=== PATIENT | male | born 1970 | race Caucasian/White ===

== ENCOUNTER 2017-01-28 17:06 | Emergency (ER) | payer BC ==
[~2017-01-28] VITALS: Ht 185.4 cm; Wt 100.3 kg
[2017-01-28 18:06] LABS: HEMATOCRIT 47.1 % (38.0-50.0); MCH 30.3 PG (29.0-34.0); MCHC 34.6 G/DL (30.0-36.0); MCV 87.5 FL (86-99); MEAN PLAT.VOLUME 9.5 uM^3 (9.0-12.4); PLATELET COUNT 268 K/uL (156-360); RBC DIS.WIDTH-SD 38.7 % (39-53); RED BLOOD COUNT 5.38 M/uL (4.00-5.50)
[2017-01-28 18:22] LABS: CHLORIDE 97 mEq/L (99-109); POTASSIUM 3.4 mEq/L (3.7-5.4); SODIUM 134 mEq/L (136-147)
[2017-01-28 18:23] LABS: GLUCOSE 115 mg/dL (70-99)
[2017-01-28 18:25] LABS: ANION GAP 13 MEQ/L (2-14)
[2017-01-28 18:27] LABS: GFR ESTIMATE (CALCULATED) > 59 mL/min/
[2017-01-28 18:28] LABS: UREA NITROGEN (BUN) 15 mg/dL (9-23)
[2017-01-28 19:40] LABS: ADD MIUA? YES; BILIRUBIN NEGATIVE; BLOOD LARGE; COLOR AMBER ((YELLOW)); GLUCOSE (STRIP) NEGATIVE; KETONES 5; LEUKOCYTES NEGATIVE; NITRITE NEGATIVE; PROTEIN (STRIP) 100; SPECIFIC GRAVITY 1.024 (1.000-1.030); UROBILINOGEN 0.2 MG/DL (0.2-1.0)
[2017-01-28 19:53] LABS: BACTERIA RARE /HPF; EPITHELIAL CELLS RARE /HPF; HYALINE CASTS 0-5 /LPF; MUCUS 3+ /LPF; RED BLOOD CELLS 20-30 /HPF (0-5); UCUL ADDED? NO; WHITE BLOOD CELLS 0-5 /HPF (0-5)
[2017-01-28 20:23] LABS: INTERNAL CONTROL VALID? YES; MONOSPOT (MONONUCLEOSIS SEROL) NEGATIVE
[2017-01-28 21:05] LABS: ALKALINE PHOSPHATASE 66 IU/L (3-129)
[2017-01-28 21:08] LABS: DIRECT BILIRUBIN 0.4 mg/dL (0.0-0.3)
[2017-01-28 21:09] LABS: CREATINE KINASE 102 IU/L (1-294); LIPASE 34 U/L (1.0-51.0)
[2017-01-28] MEDS ORDERED: VIBRAMYCIN100 MG PO (22:29)
[2017-01-28] MEDS ORDERED: FLONASE16 G1 BOTH NARES (22:29)
[2017-01-28] MEDS ORDERED: MOTRIN800 MG PO (22:29)
[2017-01-28] MEDS ORDERED: ZOFRAN ODT4 MG PO (22:29)
[2017-01-28 22:42] VITALS: BP 124/84
[2017-01-29 11:55] LABS: LYME DISEASE SEROLOGY SCREEN NEGATIVE (NEGATIVE)
== END 2017-01-28 23:02 | disposition home or self-care (01) ==
LOC: EME 17:06 → RME 17:06
PROVIDERS: Physician Assistant
DX: J01.90 Acute sinusitis, unspecified (principal); M79.1 Myalgia; R53.1 Weakness; R11.2 Nausea with vomiting, unspecified; I10 Essential (primary) hypertension
CPT/HCPCS: 71020; 80048; 80076; 81003; 82550; 83690; 85027; 86308; 86618; 87040; 87651 90; 99281; 99284; J1885; J2405; J7030

== ENCOUNTER 2017-08-20 15:45 | Inpatient (IN) | payer SELFPAY ==
[~2017-08-20] VITALS: Ht 185.4 cm; Wt 103.6 kg
[~2017-08-20 15:45] MED LIST: FLONASE16 G1 BOTH NARES; MOTRIN800 MG PO; VIBRAMYCIN100 MG PO; ZOFRAN ODT4 MG PO
[2017-08-20 16:45] LABS: HEMATOCRIT 47.1 % (38.0-50.0); HEMOGLOBIN 16.7 G/DL (12.5-16.6); MCHC 35.5 G/DL (30.0-36.0); MCV 87.5 FL (86-99); PLATELET COUNT 292 K/uL (156-360); RBC DIS.WIDTH-CV 12.5 % (11.8-14.6); RBC DIS.WIDTH-SD 39.8 % (39-53); RED BLOOD COUNT 5.38 M/uL (4.00-5.50); WHITE BLOOD COUNT 10.7 K/uL (4.1-10.2)
[2017-08-20 16:53] LABS: ALBUMIN 4.3 g/dL (3.2-4.8); CHLORIDE 103 mEq/L (99-109); MAGNESIUM 2.3 mg/dL (1.3-2.7); POTASSIUM 3.4 mEq/L (3.7-5.4); SODIUM 139 mEq/L (136-147)
[2017-08-20 16:55] LABS: GLUCOSE 142 mg/dL (70-99); PTT 30.9 SEC (25-37); TOTAL PROTEIN 7.2 g/dL (6.4-8.3)
[2017-08-20 16:57] LABS: TOTAL BILIRUBIN 0.6 mg/dL (0.0-1.0)
[2017-08-20 16:59] LABS: ALKALINE PHOSPHATASE 43 IU/L (3-129); CREATININE 1.1 mg/dL (0.6-1.3); GFR ESTIMATE (CALCULATED) > 59 mL/min/ (58.99-99999)
[2017-08-20 17:00] LABS: AST (GOT) 29 IU/L (2-34); UREA NITROGEN (BUN) 16 mg/dL (9-23)
[2017-08-20 17:02] LABS: ALT (GPT) 41 IU/L (3-49); LIPASE 90 U/L (1.0-51.0)
[2017-08-20 17:10] LABS: TROP-I INTERPRETATION NEGATIVE; TROPONIN-I < 0.01 ng/mL (0.0-0.30)
[2017-08-20] MEDS ORDERED: ZESTORETIC 20-1 EAC1 PO (18:38)
[2017-08-20 20:30] VITALS: BP 130/85
[2017-08-20 20:59] LABS: THYROTROPIN (TSH) 4.5 MIU/L (0.4-5.5)
[2017-08-20 21:54] LABS: TROP-I INTERPRETATION NEGATIVE; TROPONIN-I < 0.01 ng/mL (0.0-0.30)
[2017-08-20 23:00] VITALS: BP 124/89
[2017-08-21 04:45] VITALS: BP 124/83
[2017-08-21 05:48] LABS: HEMATOCRIT 44.3 % (38.0-50.0); MCH 30.4 PG (29.0-34.0); MCHC 33.9 G/DL (30.0-36.0); MCV 89.7 FL (86-99); PLATELET COUNT 248 K/uL (156-360); RBC DIS.WIDTH-CV 12.6 % (11.8-14.6); RBC DIS.WIDTH-SD 41.4 % (39-53); RED BLOOD COUNT 4.94 M/uL (4.00-5.50); WHITE BLOOD COUNT 7.3 K/uL (4.1-10.2)
[2017-08-21 06:10] LABS: TROP-I INTERPRETATION NEGATIVE; TROPONIN-I < 0.01 ng/mL (0.0-0.30)
[2017-08-21 06:25] LABS: CHLORIDE 106 MEQ/L (99-109); CREATININE 1.1 MG/DL (0.6-1.3); GFR ESTIMATE (CALCULATED) > 59 mL/min/ (58.99-99999); GLUCOSE 91 mg/dL (70-99); PHOSPHORUS 3.8 mg/dL (2.5-4.9); SODIUM 141 MEQ/L (136-147); UREA NITROGEN (BUN) 16 mg/dL (9-23)
[2017-08-21 06:26] LABS: POTASSIUM 4.2 MEQ/L (3.7-5.4)
[2017-08-21 08:00] VITALS: BP 134/78
[2017-08-21 12:14] VITALS: BP 140/97
[2017-08-21 15:00] VITALS: BP 130/85
[2017-08-21] MEDS ORDERED: LOPRESSOR25 MG PO (15:18)
== END 2017-08-21 16:22 | disposition home or self-care (01) | DRG 310 ==
LOC: EME 15:45 → EDOF 18:32 → 4EAST 18:32 → ENRESERV 18:33 → 4EAST 20:19
PROVIDERS: Emergency Medicine; Hospitalist; Internal Medicine Cardiovascular Disease
DX: I47.1 Supraventricular tachycardia (principal); R55 Syncope and collapse; I49.3 Ventricular premature depolarization; I47.2 Ventricular tachycardia; I10 Essential (primary) hypertension; S01.81XD Laceration without foreign body of other part of head, subsequent encounter; E87.6 Hypokalemia; Z68.30 Body mass index [BMI] 30.0-30.9, adult; Z80.9 Family history of malignant neoplasm, unspecified; Z82.49 Family history of ischemic heart disease and other diseases of the circulatory system
CPT/HCPCS: 70140; 70551; 71045; 71275; 80048; 80053; 83690; 83735; 84100; 84443; 84484; 85027; 85610; 85730; 86850; 86900; 86901; 93005; 93306; 99281; 99285; J1650; J3475; J7030